=== PATIENT | female | born 1950 | race Caucasian/White ===

== ENCOUNTER 2019-04-15 15:13 | Outpatient (CLI) | payer MEDICARE, SELFPAY ==
--- NOTE | 2019-04-15 15:25 | XR_ITS ---
WS: [id number] XR lumbar spine f/e only [id number] REASON FOR EXAM: RESTLESS SYNDROME/SCIATICA FINDINGS: Grade 2 spondylolisthesis L5-S1 The remaining disc spaces and vertebral bodies were normal. Limited flexion and extension. XR/XR lumbar spine f/e only [id number] IMPRESSION: Grade 2 spondylolisthesis L5-S1. Limited flexion-extension.
== END 2019-04-15 15:14 | disposition home or self-care (01) ==
PROVIDERS: Family Provider Family Medicine; PCP Family Medicine; Visit Provider Nurse Practitioner Family
DX: M43.17 Spondylolisthesis, lumbosacral region (principal); M54.5 Low back pain; G25.81 Restless legs syndrome; M54.30 Sciatica, unspecified side
CPT/HCPCS: 72120

== ENCOUNTER 2020-10-20 13:24 | Outpatient (CLI) | payer MEDICARE, SELFPAY ==
--- NOTE | 2020-10-20 13:35 | MR_ITS ---
WS: [id number] MRI HEAD WITHOUT CONTRAST TECHNIQUE: Sagittal T1, T2 axial, T2 axial FLAIR, axial and coronal T1 images, axial susceptibility w eighted imaging, axial diffusion weighted images, and coronal T2 images were obtained. CLINICAL INFORMATION: LEFT SIDED WEAKNESS;NEUROPATHY;STATUS POST CVA COMPARISON: None. FINDINGS: No evidence of restricted diffusion to suggest acute ischemia. Ventricular system and basal cisterns are patent. Moderate small vessel changes. Moderate parenchymal volume loss. Small vessel changes in the nancy. Chronic lacunar infarct right lateral thalamus. Normal vascular flow voids at the skull base. No extra axial fluid collections. No evidence of mass o r mass effect. Paranasal sinuses and mastoid air cells are well aerated. Mild disc bulging in the upper cervical spine at C4-5 with mild central canal stenosis. No hemosideri n on susceptibly weighted images. Normal optic chiasm and pituitary infundibulum. Moderate symmetric atrophy temporal lobes and hippocampal formations. Normal cavernous sinuses and Meckel's cave. MR/MR head wo con* [id number] IMPRESSION: 1. No evidence of restricted diffusion to suggest acute ischemia. 2. Moderate small vessel changes with moderate parenchymal volume loss. 3. Chronic lacunar infarct right thalamus. 4. Moderate symmetric atrophy temporal lobes and hippocampal formations. 5. Normal optic chiasm and pituitary infundibulum. 6. Paranasal sinuses and mastoid air cells are well aerated. 7. Disc osteophyte complex in the upper cervical spine at C4-5 with mild centr al canal stenosis. This can be further evaluated with cervical spine MRI.
== END 2020-10-20 13:25 | disposition home or self-care (01) ==
LOC: RADSHAW 13:33
PROVIDERS: PCP Nurse Practitioner Family; Visit Provider Nurse Practitioner Family
DX: M62.81 Muscle weakness (generalized) (principal); Z86.73 Personal history of transient ischemic attack (TIA), and cerebral infarction without residual deficits; I63.9 Cerebral infarction, unspecified; M25.78 Osteophyte, vertebrae; G31.9 Degenerative disease of nervous system, unspecified
CPT/HCPCS: 70551

== ENCOUNTER → 2021-02-05 14:43 | Outpatient (BNVA) | payer MEDICARE, SELFPAY | PROVIDERS: PCP Nurse Practitioner Family; Visit Provider Nurse Practitioner Family | DX: N39.46 Mixed incontinence (principal); N39.0 Urinary tract infection, site not specified | CPT/HCPCS: 81003; 87086 ==

== ENCOUNTER 2021-05-01 06:00 | Outpatient (RCR) | payer MEDICARE, SELFPAY | END 2021-05-10 23:59 | disposition home or self-care (01) | LOC: MPT 06:00 | PROVIDERS: PCP Nurse Practitioner Family; Referring Provider Nurse Practitioner Family; Visit Provider Nurse Practitioner Family | DX: N39.46 Mixed incontinence (principal) | CPT/HCPCS: 97161; 97530 ==

== ENCOUNTER 2021-05-15 06:00 | Outpatient (RCR) | payer MEDICARE, SELFPAY | END 2021-06-09 23:59 | disposition home or self-care (01) | LOC: MPT 06:00 | PROVIDERS: PCP Nurse Practitioner Family; Referring Provider Nurse Practitioner Family; Visit Provider Nurse Practitioner Family | DX: N39.46 Mixed incontinence (principal); Z86.73 Personal history of transient ischemic attack (TIA), and cerebral infarction without residual deficits | CPT/HCPCS: 97110; 97530 ==

== ENCOUNTER → 2021-06-07 14:40 | Outpatient (BNVA) | payer MEDICARE, SELFPAY | PROVIDERS: PCP Nurse Practitioner Family; Visit Provider Nurse Practitioner Family | DX: N39.0 Urinary tract infection, site not specified (principal) | CPT/HCPCS: 81003 ==

== ENCOUNTER 2021-06-10 06:00 | Outpatient (RCR) | payer MEDICARE, SELFPAY | END 2021-07-10 23:55 | disposition home or self-care (01) | LOC: MPT 06:00 | PROVIDERS: PCP Nurse Practitioner Family; Referring Provider Nurse Practitioner Family; Visit Provider Nurse Practitioner Family | DX: R32 Unspecified urinary incontinence (principal) | CPT/HCPCS: 97140 ==

== ENCOUNTER 2021-07-11 06:00 | Outpatient (RCR) | payer MEDICARE, SELFPAY | END 2021-08-09 23:59 | disposition home or self-care (01) | LOC: MPT 06:00 | PROVIDERS: PCP Nurse Practitioner Family; Referring Provider Nurse Practitioner Family; Visit Provider Nurse Practitioner Family | DX: N39.46 Mixed incontinence (principal) | CPT/HCPCS: 97110; 97140; 97530 ==

== ENCOUNTER → 2021-09-11 15:19 | Outpatient (BNVA) | payer MEDICARE, SELFPAY | PROVIDERS: PCP Nurse Practitioner Family; Visit Provider Urology | DX: N39.0 Urinary tract infection, site not specified (principal); N39.46 Mixed incontinence | CPT/HCPCS: 51798; 81003; 99213 ==

== ENCOUNTER → 2022-02-19 12:38 | Outpatient (BNVA) | payer MEDICARE, SELFPAY | PROVIDERS: PCP Nurse Practitioner Family; Visit Provider Urology | DX: N39.46 Mixed incontinence (principal); N30.20 Other chronic cystitis without hematuria | CPT/HCPCS: 51798; 81003; 99213 ==

== ENCOUNTER 2022-06-19 15:40 | Outpatient (CLI) | payer MEDICARE, SELFPAY ==
--- NOTE | 2022-06-19 15:49 | MR_ITS ---
WS: [id number] MRI LUMBAR SPINE NONCONTRAST HISTORY: UNSPECIFIED URINARY INCONTINENCE COMPARISON: No similar studies. TECHNIQUE: Sagittal and axial multisequence imaging is submitted. Mild straightening and reversal of the normal cervical lordosis. Advanced degenerative disc space radha rowing at C5-6. L5 anterolisthesis by 9 mm. Severe disc space narrowing at L5-S1. Small amount of reactive marrow rashawn ma in the adjacent L5 and S1 endplates. L1 retrolisthesis by 3 mm with moderate disc space narrowing at L1-2. Remaining disc spaces are normal. Conus terminates normally at L1. L1-L2: Mild annular disc bulging with ligamentum flavum hypertrophy and facet arthritis. Mild subarti cular recess encroachment. Mild bilateral foraminal stenosis. L2-L3: Diffuse annular disc bulging with mild ligamentum flavum and facet arthritis. Bilateral broad- based foraminal disc protrusions, RIGHT greater than LEFT. Mild encroachment upon the ventral thecal sac and subarticular recesses. Mild bilateral subarticular recess stenosis. L3-L4: Mild annular disc bulge with mild ligamentum flavum and facet arthritis. Mild encroachment upo n the subarticular recesses. L4-L5: Mild annular disc bulge. There is a very tiny shallow central disc protrusion. Very slight con tact on the LEFT L5 nerve root but no displacement. Moderate facet joint arthritis. L5-S1: Unroofing of the disc with mild disc encroachment upon the S1 nerve roots. Severe bilateral fo raminal stenosis. Severe facet joint arthritis and ligamentum flavum hypertrophy. Paravertebral soft tissues are normal. MR/MR lumbar spine wo con* [id number] IMPRESSION: 1. Grade 2 spondylolisthesis of L5. Bilateral pars defects. 2. Severe bilateral foraminal stenosis at L5-S1 with significant encroachment upon the L5 nerve roots. 3. Very mild disc contact on the S1 nerve roots. No central stenosis at L5-S1. 4. Severe facet joint arthritis at L5-S1 and moderate at L4-5. 5. Mild subarticular recess encroachment at L1-2, L2-3 and L3-4. 6. Shallow central disc protrusion at L4-5 with very slight contact on the LEF T L5 nerve root.
== END 2022-06-19 15:41 | disposition home or self-care (01) ==
LOC: RAD 15:44
PROVIDERS: PCP Nurse Practitioner Family; Visit Provider Nurse Practitioner Family
DX: M43.16 Spondylolisthesis, lumbar region (principal); M48.061 Spinal stenosis, lumbar region without neurogenic claudication; M47.817 Spondylosis without myelopathy or radiculopathy, lumbosacral region; M51.26 Other intervertebral disc displacement, lumbar region
CPT/HCPCS: 72148

== ENCOUNTER 2025-02-04 12:36 | Outpatient (CLI) | payer MEDICARE, SELFPAY ==
--- NOTE | 2025-02-04 12:44 | MR_ITS ---
WS: [id number] MRI LUMBAR SPINE NONCONTRAST TECHNIQUE: Sagittal T1, T2 and STIR imaging. Axial T1 and T2 imaging. CLINICAL INFORMATION: CHRONIC BACK PAIN,SCIATICA, URINARY INCONTINENCE COMPARISON: MRI 06/19/2022 FINDINGS: Chronic spondylolysis L5-S1 with grade 2 anterolisthesis measuring 9.2 mm versus 8.3 mm in 2022. Slight retrolisthesis L1 on L2. L1-L2: Slight retrolisthesis. Mild annular bulging with impingement subarticular recess bilaterally. Mild facet arthropathy. Mild central canal stenosis slightly progressed compared to previous. Mild bilateral foraminal narrowing. L2-L3: Mild annular bulging. Mild central canal stenosis with narrowing of the subarticular recess. Moderate facet arthropathy. Mild RIGHT foraminal narrowing. L3-L4: Mild annular bulging. Progressed mild central canal stenosis. Impingement of traversing L4 nerve roots. Moderate facet arthropathy. Mild LEFT greater than RIGHT foraminal narrowing. L4-L5: Compression fracture anterior inferior endplate of L4 with edema. This is new compared to previous. Small fracture cleft visualized anteriorly. Associated edema in the L5 superior endplate with endplate Schmorl's node. Disc bulging at this level has progressed compared to previous with impingement of traversing L5 nerve roots. New large LEFT foraminal disc extrusion fills the LEFT neural foramen with severe LEFT foraminal narrowing. Disc material measures 14 mm. Moderate facet arthropathy. L5-S1: Chronic spondylolysis with grade 2 anterolisthesis. Spinal canal is patent. Moderate bilateral foraminal narrowing and moderate facet arthropathy. MR/MR lumbar spine wo con* [id number] IMPRESSION: 1. New small compression fracture anterior inferior endplate of L4 with edema. Associated edema in the L5 superior endplate with endplate Schmorl's node. 2. Grade 2 anterolisthesis L5 on S1 with chronic spondylolysis. This is slight ly progressed compared to previous. 3. Progressed mild central canal stenosis L1-L2 L2-L3 and L3-L4 with impingeme nt of the subarticular recess at these levels. 4. Large far LEFT foraminal disc extrusion at L4-5 is new compared to previous with severe LEFT foraminal narrowing and impingement on the exiting LEFT L4 ne rve root. Disc material measures 14 mm. Recommend spine surgery consultation. 5. Moderate LEFT greater than RIGHT bony foraminal narrowing L5-S1.
== END 2025-02-04 12:37 | disposition home or self-care (01) ==
PROVIDERS: PCP Nurse Practitioner Family; Visit Provider Nurse Practitioner Family
DX: R32 Unspecified urinary incontinence (principal); M51.360 Other intervertebral disc degeneration, lumbar region with discogenic back pain only; M47.816 Spondylosis without myelopathy or radiculopathy, lumbar region; M47.817 Spondylosis without myelopathy or radiculopathy, lumbosacral region; M48.061 Spinal stenosis, lumbar region without neurogenic claudication; M51.46 Schmorl's nodes, lumbar region
CPT/HCPCS: 72148